=== PATIENT | female | born 1960 | race Caucasian/White ===

== ENCOUNTER 2021-01-05 11:26 | Emergency (ER) | payer OTHER, SELFPAY ==
--- NOTE | ~2021-01-05 | XR_ITS ---
EXAMINATION: XR wrist LT 2V DATE: 01/05/2021 12:32 INDICATION: Left wrist deformity and pain. TECHNIQUE: 2 views of left wrist were obtained. COMPARISON: None. FINDINGS: Bone alignment is normal. There is a nondisplaced fracture of the radial styloid. Ulnar sty loid is intact. There is mild osteoarthritis of first carpometacarpal joint. IMPRESSION: 1. Nondisplaced fracture of the radial styloid. Reviewed, dictated and finalized at location B.
[2021-01-05 11:40] VITALS: BP 124/71; PULSE 62; RESP 18; TEMP 36.8; O2SAT 99
[2021-01-05] MEDS: TETANUS,DIPHTHERIA,AC PERTUSSIS ADULT (0.5 ML) BOOSTRIX IM (12:32)
--- NOTE | 2021-01-05 12:40 | ED.UPPEXIN ---
HPI - Extremity Injury (Upper) General Chief Complaint: Extremity Injury, Upper Stated Complaint: head injury/fall Time Seen by Provider: 01/05/21 12:09 History of Present Illness HPI narrative: Patient is a 60-year-old female who presents ER after injuring her head and her wrist. Patient was walking around the car while helping her boss unload boxes when the trunk of the car was automatically shutting and it struck her in the head. This caused her to fall backwards onto her left wrist. She suffered injury to her left wrist has swelling at the wrist near the base of the thumb. She maintains range of motion at the wrist and the fingers. No numbness or tingling. Last tetanus shot was in 2010 while she lived in [place]. Bleeding controlled. Patient is on no blood thinners. She did not lose consciousness. No change in vision or hearing. No nausea or vomiting. No dizziness. Related Data Allergies Allergy/AdvReac Type Severity Reaction Status Date / Time hydromorphone [From Dilaudid] Allergy Seizure Verified 01/05/21 12:31 Penicillins Allergy Swelling Verified 01/05/21 12:31 Review of Systems Eyes: Eyes: Denies change in vision Gastrointestinal: Gastrointestinal: Denies nausea and Denies vomiting Musculoskeletal: Musculoskeletal: Denies myalgias, Reports arthralgias and Reports joint swelling Neurologic: Denies syncope, Denies headache(s), Denies focal weakness and Denies numbness Comments: Forehead laceration PMFSH Past Medical History Medical History (Updated 01/05/21 @ 12:56 by Pb Larson MD) Healthy female adult Surgical History Surgical History (Updated 01/05/21 @ 12:56 by Pb Larson MD) History of hysterectomy Social History Social History (Updated 01/05/21 @ 12:56 by Pb Larson MD) Smoking status: Never smoker Exam Narrative: Exam Narrative: GENERAL: Well-appearing, well-nourished, and in no acute distress. HEAD: Normocephalic, 2 cm superficial laceration to the middle forehead well approximated. EYES: PERRLA and EOMI. EXTREMITIES: Focused exam of the left upper extremity reveals swelling near the anatomic snuffbox and tenderness over the radial aspect of the wrist. Range of motion preserved. Normal radial pulse. Normal capillary refill. SKIN: Warm, dry, no rash. NEURO: No focal deficits. Alert and oriented x3. Course Course Emergency Course: Patient informed results. Wound repaired. Patient placed in thumb spica splint. Discharge home. Vital Signs Vital signs: Vital Signs Temperature 98.2 F 01/05/21 11:40 Pulse Rate 62 01/05/21 11:40 Respiratory Rate 18 01/05/21 11:40 Blood Pressure 124/71 01/05/21 11:40 Pulse Oximetry 99 01/05/21 11:40 Temperature 98.2 F 01/05/21 11:40 Pulse Rate 62 01/05/21 11:40 Respiratory Rate 18 01/05/21 11:40 Blood Pressure 124/71 01/05/21 11:40 Pulse Oximetry 99 01/05/21 11:40 Procedures Laceration Laceration 1: Date: 01/05/21 Time: 12:45 Site: face Size (cm): 2 Description: linear and clean Depth: simple, single layer Pre-repair: irrigated ====== Skin Level ====== Skin layer closed with: dermabond and steri strips ====== Subcutaneous Layer ====== ====== Muscle Layer ====== ====== Tendon Layer ====== Orthopedic Splinting/Casting Injury #1: Splinting/Casting Date: 01/05/21 Splinting/Casting Time: 12:53 Side: left Upper Extremity Injury Location: wrist Upper Extremity Immobilizer: thumb spica Splint: customized in ED Pre-Procedure Neuro Vascular Exam: normal Post-Procedure Neuro Vascular Exam: normal Discharge Plan Discharge Clinical Impression: Closed fracture of radial styloid, Facial laceration Patient Disposition: Home, Self-Care Condition: Stable Instructions: Wrist Fracture in Adults (ED), Splint Care (ED), Skin Adhesive Care (ED) Additional Instr
[2021-01-05] MEDS: ACETAMINOPHEN 325 MG TABLET 650 MG (13:07)
--- NOTE | 2021-01-05 13:27 | PC.NURSE ---
thumb spica applied to left wrist. good pms before and after application
[2021-01-05 13:32] VITALS: BP 122/78; PULSE 80; RESP 18; O2SAT 99
== END 2021-01-05 13:33 | disposition home or self-care (01) ==
PROVIDERS: Emergency Provider Emergency Medicine
DX: S52.515A Nondisplaced fracture of left radial styloid process, initial encounter for closed fracture (principal); S01.81XA Laceration without foreign body of other part of head, initial encounter; W18.09XA Striking against other object with subsequent fall, initial encounter; Z23 Encounter for immunization
CPT/HCPCS: 12013; 29125; 73100; 90471; 90715; 99283; A9270

== ENCOUNTER 2022-04-15 10:45 | Emergency (ER) | payer OTHER, SELFPAY ==
[2022-04-15 10:51] VITALS: BP 143/60; PULSE 68; RESP 16; TEMP 37.2; O2SAT 100
--- NOTE | 2022-04-15 11:03 | ED.FEMALEGU ---
HPI - Female Genitourinary General Chief complaint: Urogenital-Female Stated complaint: Poss uti Time Seen by Provider: 04/15/22 11:00 Source: patient, RN notes reviewed and old records reviewed Mode of arrival: ambulatory Limitations: no limitations History of Present Illness HPI Narrative: 62 year old female who presents to [facility] care with complaints of having bilateral flank pain on night through the night into Sunday with some chills. She reports that she noticed some dark looking urine on Sunday also. Patient reports that flank pain is gone but she has suprapubic pain which is worse with urination and chills but no known fevers. Patient denies any nausea or vomiting, denies any vaginal discharge or any itching no concern for STD's. Patient has not been COVID vaccinated.She has taken some Ibuprofen for her discomfort. MD elicited complaint: dysuria, flank pain and other (suprapubic pain) Pertinent past history: hysterectomy and other Onset (ago): day(s) (2) Location of symptoms: suprapubic Severity scale (1-10): 6 Related Data Allergies Allergy/AdvReac Type Severity Reaction Status Date / Time hydromorphone [From Dilaudid] Allergy Seizure Verified 04/15/22 11:08 Penicillins Allergy Swelling Verified 04/15/22 11:08 Review of Systems Review of Systems: CONSTITUTIONAL: Denies fever, some chills, no sweats. EYES: Denies visual changes, redness, or discharge. ENT: Denies rhinorrhea, congestion, sore throat, or otalgia. CARDIOVASCULAR: Denies chest pain, palpitations, or edema. RESPIRATORY: Denies cough or dyspnea. GASTROINTESTINAL:Positive for suprapubic abdominal pain,no nausea, vomiting, or diarrhea. GENITOURINARY: Positive for dysuria no visible hematuria. SKIN: Denies rash or itching. MUSCULOSKELETAL: Denies present flank area back pain, joint pain, or myalgia. NEUROLOGIC: Denies headache, numbness, or weakness. PSYCHIATRIC: Denies anxiety or depression. All systems reviewed & are unremarkable except as noted in HPI and below PMFSH Past Medical History Medical History (Updated 04/16/22 @ 00:00 by Lynette Alarcon) Healthy female adult Surgical History Surgical History (Updated 04/17/22 @ 09:01 by Deena Mir NP) H/O wrist surgery related to fracture History of hysterectomy History of surgery on lower extremity left thigh surgery related to trauma age 12 Social History Social History (Updated 01/05/21 @ 12:56 by Pb Larson MD) Smoking status: Never smoker Comments At time of signature agree with nursing documentation of past medical, surgical, social and family history. There is no relevant family history pertinent to presenting complaint Exam Narrative: GENERAL: Well-appearing, well-nourished, and in no acute distress. HEAD: Normocephalic, atraumatic. EYES: PERRLA and EOMI. ENT: Nares clear, no rhinorrhea or epistaxis. Mucous membranes moist.TM's normal with good light reflex, throat pink with no lesions or exudate, no tonsil swelling NECK: Supple.no lymphadenopathy CHEST: Clear to auscultation. No respiratory distress.SAO2 100% on room air HEART: Regular rate and rhythm. No murmur heard. Normal peripheral pulses. ABDOMEN: Soft,tender over suprapubic region, nondistended, normal active bowel sounds.o CVA tenderness, no nausea vomiting or diarrhea EXTREMITIES: Normal range of motion. No edema. SKIN: Warm, dry, no rash. NEURO: No focal deficits. Alert and oriented x3. Course Course Level of Care: Express Care Visit Vital Signs Vital signs: Vital Signs Temperature 37.2 C 04/15/22 10:51 Pulse Rate 68 04/15/22 10:51 Respiratory Rate 16 04/15/22 10:51 Blood Pressure 143/60 H 04/15/22 10:51 Pulse Oximetry 100 04/15/22 10:51 Oxygen Delivery Room Air 04/15/22 10:51 Temperature 37.2 C 04/15/22 11:08 Pulse Rate 68 04/15/22 11:08 Respiratory Rate 16 04/15/22 11:08 Blood Pressure 143/60 H 04/15/22 11:08 Pulse Oximetry 100 04/15/22 11:08 Oxygen
[2022-04-15 11:08] VITALS: BP 143/60; PULSE 68; RESP 16; TEMP 37.2; O2SAT 100
== END 2022-04-15 11:27 | disposition home or self-care (01) ==
PROVIDERS: Emergency Provider Registered Nurse
DX: N39.0 Urinary tract infection, site not specified (principal)
CPT/HCPCS: 81003; 87086; 99213; G0463

== ENCOUNTER 2022-11-17 15:43 | Emergency (ER) | payer OTHER, SELFPAY ==
[2022-11-17 15:50] VITALS: BP 131/67; PULSE 63; RESP 18; TEMP 36.8; O2SAT 100
--- NOTE | 2022-11-17 16:13 | ED.GENADULT ---
HPI - General Adult General Chief complaint: Upper Respiratory Infection Stated complaint: Sore Throat Time Seen by Provider: 11/17/22 16:05 Source: patient, RN notes reviewed and old records reviewed Mode of arrival: ambulatory Limitations: no limitations History of Present Illness HPI narrative: 62-year-old female presents to [facility] with complaints of cough, body aches sore throat since Sunday and awoke with no voice this morning. Patient reports that she watches her grandson and he was recently ill with cold symptoms. Patient reports no fevers chills or sweats, reports fatigue and some dizziness at times if she is up moving very long. Patient reports that she has been taking Mucinex for her symptoms.Patient reports that she is hacking up phlegm white in color with some soreness to her upper chest with cough. MD complaint: cough productive and sore throat, fatigue hoarseness Onset (ago): day(s) (3-4) Severity scale (1-10): 8 Exacerbating factors: other (swallowing) Treatments prior to arrival: other (Mucinex) Related Data Home Medications Medication Instructions Recorded Confirmed B Complex 11/17/22 iodine 11/17/22 multivitamin tablet 11/17/22 Allergies Allergy/AdvReac Type Severity Reaction Status Date / Time hydromorphone [From Dilaudid] Allergy Seizure Verified 04/15/22 11:08 Penicillins Allergy Swelling Verified 04/15/22 11:08 Review of Systems Review of Systems: CONSTITUTIONAL: Denies malaise, chills, sweats, or fever.fatigue EYES: Denies visual changes, redness, or discharge. ENT: Reports rhinorrhea, congestion, sinus pain,no otalgia, positive for sore throat. CARDIOVASCULAR: Denies chest pain, palpitations, or edema. RESPIRATORY: Reports cough.? Denies dyspnea. GASTROINTESTINAL: Denies abdominal pain, nausea, vomiting, diarrhea SKIN: Denies rash or itching. MUSCULOSKELETAL: reports myalgia. NEUROLOGIC: Denies headache.states some dizziness when up very long. All systems reviewed & are unremarkable except as noted in HPI and below PMFSH Past Medical History Medical History Healthy female adult Surgical History Surgical History H/O wrist surgery related to fracture History of hysterectomy History of surgery on lower extremity left thigh surgery related to trauma age 12 Social History Social History Smoking status: Never smoker Comments At time of signature, agree with nursing past medical, surgical, social and family history. There is no relevant family history pertinent to the presenting complaint Exam Narrative: GENERAL: Well-appearing, well-nourished, and in no acute distress. HEAD: Normocephalic EYES: PERRLA, conjunctivae clear ENT: Nares clear, turbinates edematous and erythematous, clear discharge. Mucous membranes moist. TM pearly burden with dull light reflex bilaterally; no tragal tenderness. Oropharynx erythematous without lesions. Tonsils not enlarged and without exudate, no drooling, positive for hoarseness, no trismus, uvula midline. NECK: Supple. No lymphadenopathy CHEST: Clear to auscultation, breath sounds equal. No wheezing, rhonchi, rales, or stridor. No respiratory distress, speaks in full sentences.cough SAO2 100% on room air HEART: Regular rate and rhythm. No murmur heard. SKIN: Warm, dry, no rash. NEURO: Alert and oriented x3. PSYCH: Normal mood and affect Course Course Emergency Course: Patient is aware of diagnosis, understands and agrees to treatment plan.? Anticipatory guidance given.? Patient agrees to follow-up as directed and is aware of reasons to seek care at the emergency department. Portions of this record may have been created with voice recognition software Level of Care: Express Care Visit Vital Signs Vital signs: Vital Signs Temperature 36.8
== END 2022-11-17 16:51 | disposition home or self-care (01) ==
PROVIDERS: Emergency Provider Registered Nurse; PCP Chiropractor
DX: J02.9 Acute pharyngitis, unspecified (principal); R05.9 Cough, unspecified
CPT/HCPCS: 87081; 87880; 99213; G0463